=== PATIENT | female | born 1980 | race Caucasian/White ===

== ENCOUNTER 2017-12-22 22:43 | Emergency (ER) | payer OTHER ==
[~2017-12-22] VITALS: Ht 165.1 cm; Wt 99.8 kg
[2017-12-22 22:43] VITALS: BP_SYST 167
[2017-12-23 00:15] VITALS: BP_SYST 146
== END 2017-12-23 00:15 | disposition home or self-care (01) ==
LOC: SED 22:43
DX: J06.9 Acute upper respiratory infection, unspecified (principal)
CPT/HCPCS: 36415; 81025; 86710; 99284

== ENCOUNTER 2023-09-02 17:14 | Inpatient (IN) | payer OTHER ==
[~2023-09-02] VITALS: Ht 165.1 cm; Wt 81.2 kg
[2023-09-02 17:25] VITALS: BP_SYST 136; PULSE 103; RESP 20; TEMP 98.3; O2SAT 98
[2023-09-02] MEDS ORDERED: NACL 0.9% 1,000 ML IV ONE (19:00)
[2023-09-02] MEDS ORDERED: THIAMINE HCL 100 MG in NS 50 ML IV ONE (19:00)
[2023-09-02 19:32] LABS: CALCIUM 8.8 mg/dL (8.4-11.0); CREATININE 0.79 mg/dL (0.55-1.30); POTASSIUM 3.9 mmol/L (3.5-5.1)
[2023-09-02 19:36] LABS: ALBUMIN 3.3 g/dL (3.4-4.8); TOTAL BILIRUBIN 1.3 mg/dL (0.0-1.0); TOTAL PROTEIN, SERUM 7.9 g/dL (6.4-8.3)
[2023-09-02] MEDS ORDERED: THIAMINE HCL 100 MG/ML VIAL ONE (19:45)
[2023-09-02 20:07] LABS: BASOPHILS % (AUTO) 0.3 % (0.0-2.0); EOSINOPHILS # (AUTO) 0.1 K/uL (0.0-0.4); EOSINOPHILS % (AUTO) 0.7 % (0.0-4.0); LYMPHOCYTES # (AUTO) 1.8 K/uL (1.0-5.5); LYMPHOCYTES % (AUTO) 14.9 % (20.5-51.5); MEAN CORPUSCULAR HEMOGLOBIN 30 pg (27-31); MEAN CORPUSCULAR HGB CONC 34 % (32-36); MEAN CORPUSCULAR VOLUME 88 fL (79.0-98.0); MONOCYTES # (AUTO) 1.3 K/uL (0.0-1.0); MONOCYTES % (AUTO) 10.6 % (1.7-9.3); NEUTROPHILS # (AUTO) 8.8 K/uL (1.8-7.7); NEUTROPHILS % (AUTO) 73.5 % (40.0-70.0); PLATELET COUNT (AUTO) 544 K/uL (130-430); RED BLOOD CELL COUNT(AUTO) 5.37 MIL/uL (4.2-6.2); RED CELL DISTRIBUTION WIDTH 14.3 % (9.0-15.0)
[2023-09-02 20:09] LABS: BARBITURATE, URINE NEGATIVE (NEG <=200); BENZODIAZEPINE, URINE NEGATIVE (NEG <=150); CANNABINOID, URINE NEGATIVE (NEG <=50); COCAINE, URINE NEGATIVE (NEG <=150); METHAMPHETAMINES SCREEN,URINE NEGATIVE (NEG <=500); OPIATE, URINE NEGATIVE (NEG <=100); PHENCYCLIDINE SCREEN,URINE NEGATIVE (NEG <=25); URINE AMPHETAMINE NEGATIVE (NEG <=500); URINE METHADONE NEGATIVE (NEG <=200); URINE OXYCODONE SCREEN NEGATIVE (NEG <=100); URINE PROPOXYPHENE SCREEN NEGATIVE (NEG <=300)
[2023-09-02 20:10] LABS: UR TRICYCLIC ANTIDEPRESSANTS NEGATIVE (NEG <=300)
[2023-09-02] MEDS ORDERED: MORPHINE 2 MG/ML INJ. SYRINGE IVP ONE (20:45)
[2023-09-02] MEDS ORDERED: ONDANSETRON HCL 4 MG/2 ML VIAL IVP ONE (22:15)
[2023-09-03] MEDS ORDERED: PIPERACILLIN/TAZO 3.375 GM in NS 50 ML IV ONE (02:00)
[2023-09-03] MEDS ORDERED: PIPERACILLIN/TAZOBACTAM 3.375 GM/VIAL (ZOSYN) IV ONE (02:11)
[2023-09-03 02:21] LABS: BILIRUBIN,URINE 1+ (NEGATIVE); BLOOD, URINE NEGATIVE (NEGATIVE); CLARITY/URINE CLOUDY (CLEAR); COLOR,URINE YELLOW (YELLOW); GLUCOSE,URINE NEGATIVE (NEGATIVE); KETONES,URINE 2+ (NEGATIVE); LEUKOCYTE ESTERASE ,URINE NEGATIVE (NEGATIVE); PH,URINE 6.5 (5.0-8.0); PROTEIN URINE TRACE (NEGATIVE)
[2023-09-03 02:30] LABS: NITRITE, URINE NEGATIVE (NEGATIVE)
[2023-09-03] MEDS ORDERED: D5/0.45 NS 1,000 ML IV ONE (02:30)
[2023-09-03 02:32] LABS: BACTERIA,URINE None Seen /HPF (None Seen); RBC,URINE 0-3 /HPF (0-3); URINE AMORPHOUS URATE 3+ /HPF (None Seen); WBC,URINE 0-3 /HPF (0-3)
[2023-09-03] MEDS ORDERED: MORPHINE 2 MG/ML INJ. SYRINGE IVP PRN ×3 (05:00→11:15)
[2023-09-03] MEDS: metroNIDAZOLE 500 mg/NS 100 ML IV SCH ×3 (06:47→23:50)
[2023-09-03 09:09] LABS: BASOPHILS % (AUTO) 0.5 % (0.0-2.0); EOSINOPHILS # (AUTO) 0.1 K/uL (0.0-0.4); EOSINOPHILS % (AUTO) 1.3 % (0.0-4.0); HEMATOCRIT 42.7 % (36-48); HEMOGLOBIN 14.1 g/dL (12.0-16.0); LYMPHOCYTES # (AUTO) 2.2 K/uL (1.0-5.5); LYMPHOCYTES % (AUTO) 24.5 % (20.5-51.5); MEAN CORPUSCULAR HEMOGLOBIN 30 pg (27-31); MEAN CORPUSCULAR HGB CONC 33 % (32-36); MEAN CORPUSCULAR VOLUME 89 fL (79.0-98.0); MONOCYTES # (AUTO) 1.1 K/uL (0.0-1.0); MONOCYTES % (AUTO) 12.7 % (1.7-9.3); NEUTROPHILS # (AUTO) 5.4 K/uL (1.8-7.7); PLATELET COUNT (AUTO) 456 K/uL (130-430); RED BLOOD CELL COUNT(AUTO) 4.79 MIL/uL (4.2-6.2); RED CELL DISTRIBUTION WIDTH 14.4 % (9.0-15.0); WHITE BLOOD COUNT (AUTO) 8.9 K/uL (4.8-10.8)
[2023-09-03] MEDS: ONDANSETRON HCL 4 MG/2 ML VIAL IVP PRN ×2 (10:01→21:11)
[2023-09-03] MEDS ORDERED: MORPHINE 2 MG/ML INJ. SYRINGE ONE (17:24)
[2023-09-03] MEDS: MORPHINE 2 MG/ML INJ. SYRINGE IVP PRN ×2 (17:26→21:11)
[2023-09-03 21:00] VITALS: BP_SYST 136; PULSE 103; RESP 18; TEMP 98
[2023-09-03] MEDS ORDERED: metroNIDAZOLE 500 mg/NS 200 ML IV ONE (23:52)
[2023-09-04 00:50] VITALS: BP_SYST 129; PULSE 107; RESP 17; TEMP 97.9; O2SAT 97
[2023-09-04] MEDS: ONDANSETRON HCL 4 MG/2 ML VIAL IVP PRN ×2 (03:34→17:26)
[2023-09-04 05:54] LABS: BASOPHILS % (AUTO) 0.5 % (0.0-2.0); EOSINOPHILS # (AUTO) 0.1 K/uL (0.0-0.4); EOSINOPHILS % (AUTO) 1.1 % (0.0-4.0); HEMOGLOBIN 14.3 g/dL (12.0-16.0); LYMPHOCYTES # (AUTO) 2.3 K/uL (1.0-5.5); LYMPHOCYTES % (AUTO) 24.6 % (20.5-51.5); MEAN CORPUSCULAR HEMOGLOBIN 30 pg (27-31); MEAN CORPUSCULAR HGB CONC 33 % (32-36); MEAN CORPUSCULAR VOLUME 90 fL (79.0-98.0); MONOCYTES # (AUTO) 1.6 K/uL (0.0-1.0); MONOCYTES % (AUTO) 16.9 % (1.7-9.3); NEUTROPHILS # (AUTO) 5.3 K/uL (1.8-7.7); NEUTROPHILS % (AUTO) 56.9 % (40.0-70.0); PLATELET COUNT (AUTO) 470 K/uL (130-430); RED BLOOD CELL COUNT(AUTO) 4.78 MIL/uL (4.2-6.2); RED CELL DISTRIBUTION WIDTH 14.1 % (9.0-15.0); WHITE BLOOD COUNT (AUTO) 9.3 K/uL (4.8-10.8)
[2023-09-04] MEDS: metroNIDAZOLE 500 mg/NS 100 ML IV SCH ×3 (06:06→21:03)
[2023-09-04 06:16] LABS: ALBUMIN 2.9 g/dL (3.4-4.8); CALCIUM 7.7 mg/dL (8.4-11.0); CREATININE 0.79 mg/dL (0.55-1.30); POTASSIUM 3.4 mmol/L (3.5-5.1); TOTAL BILIRUBIN 0.7 mg/dL (0.0-1.0)
[2023-09-04 08:00] VITALS: BP_SYST 146; PULSE 93; RESP 17; TEMP 97.7; O2SAT 98
[2023-09-04] MEDS: MORPHINE 2 MG/ML INJ. SYRINGE IVP PRN ×2 (08:38→20:35)
[2023-09-04] MEDS ORDERED: LEVO-62 PO (08:49)
[2023-09-04] MEDS ORDERED: METR-154 PO (08:49)
[2023-09-04] MEDS ORDERED: MINERAL OIL 30 ML UDC PO ONE (10:30)
[2023-09-04] MEDS ORDERED: MILK OF MAGNESIA 30 ML UDC PO ONE (10:30)
[2023-09-04 11:00] VITALS: BP_SYST 140; PULSE 93; RESP 18; TEMP 97.7; O2SAT 98
[2023-09-04 11:45] VITALS: BP_SYST 139; PULSE 94; RESP 17; TEMP 97.9; O2SAT 98
[2023-09-04 17:30] VITALS: BP_SYST 123; PULSE 96; RESP 18; TEMP 98.6; O2SAT 99
[2023-09-04 19:00] VITALS: BP_SYST 156; PULSE 110; RESP 16; TEMP 98.4; O2SAT 98
[2023-09-04] MEDS: MILK OF MAGNESIA 30 ML UDC PO SCH (20:35)
[2023-09-04] MEDS ORDERED: SIMETHICONE 80 MG TAB.CHEW ONE (22:21)
[2023-09-04] MEDS: SIMETHICONE 80 MG TAB.CHEW PO PRN (22:23)
[2023-09-05 01:13] VITALS: BP_SYST 131; PULSE 97; RESP 16; TEMP 98.2; O2SAT 98
[2023-09-05] MEDS: MORPHINE 2 MG/ML INJ. SYRINGE IVP PRN (03:01)
[2023-09-05] MEDS: ONDANSETRON HCL 4 MG/2 ML VIAL IVP PRN (03:01)
[2023-09-05] MEDS: metroNIDAZOLE 500 mg/NS 100 ML IV SCH (05:56)
[2023-09-05] MEDS: SIMETHICONE 80 MG TAB.CHEW PO PRN (06:46)
[2023-09-05] MEDS ORDERED: MINERAL OIL 30 ML UDC PO SCH (09:00)
[2023-09-05] MEDS: MILK OF MAGNESIA 30 ML UDC PO SCH (09:39)
[2023-09-05 10:21] VITALS: BP_SYST 141; PULSE 100; RESP 20; TEMP 98.1; O2SAT 95
== END 2023-09-05 10:55 | disposition home or self-care (01) | DRG 872 ==
LOC: SED 17:14 → SMU 09-03 02:30
PROVIDERS: ADMIT General Practice; ATTEND General Practice
DX: A41.9 Sepsis, unspecified organism (principal); K57.92 Diverticulitis of intestine, part unspecified, without perforation or abscess without bleeding; E87.1 Hypo-osmolality and hyponatremia; F12.10 Cannabis abuse, uncomplicated; F10.20 Alcohol dependence, uncomplicated; Y90.9 Presence of alcohol in blood, level not specified; D75.839 Thrombocytosis, unspecified; Z20.822 Contact with and (suspected) exposure to COVID-19; K59.00 Constipation, unspecified; Z98.51 Tubal ligation status
CPT/HCPCS: 36415; 74250-TC; 76376; 80053; 80307; 81000; 82140; 83605; 83690; 83880; 84484; 84702; 85025; 87040; 93005; 99285; G0482; J1956; J2270; J2405; J2543; J3411; J3490